=== PATIENT | female | born 1970 | race African-American/Black ===

== ENCOUNTER 2023-03-06 13:51 | Emergency (ER) | payer MEDICAID ==
[~2023-03-06] VITALS: Ht 167.6 cm; Wt 140.6 kg
[2023-03-06] MEDS ORDERED: cloNIDine HCL 0.1 MG TAB PO ONE (14:15)
[2023-03-06 15:28] VITALS: BP 128/64; PULSE 64; RESP 16; O2SAT 100
[2023-03-06] MEDS ORDERED: CEPH500C PO (15:32)
== END 2023-03-06 15:39 | disposition home or self-care (01) ==
LOC: ER 13:51
DX: T16.2XXA Foreign body in left ear, initial encounter (principal); I10 Essential (primary) hypertension; Z91.199 Patient's noncompliance with other medical treatment and regimen due to unspecified reason; W22.8XXA Striking against or struck by other objects, initial encounter; Y93.89 Activity, other specified; Y92.89 Other specified places as the place of occurrence of the external cause; Y99.8 Other external cause status
CPT/HCPCS: 69200